=== PATIENT | male | born 2000 | race Two or more races ===

== ENCOUNTER 2025-09-14 11:19 | Emergency (ER) | payer SELFPAY ==
[2025-09-14] MEDS ORDERED: Bacitracin Zinc Ointment 30 gm TUBE ONE (12:00)
[2025-09-14] MEDS ORDERED: Lidocaine 1% (PF) 30 ML VIAL ONE (12:00)
[2025-09-14] MEDS ORDERED: Boostrix 0.5 ML (Tdap) VIAL (>/=7 yrs of age) ONE (12:00)
[2025-09-14] MEDS ORDERED: Cephalexin 500 MG CAP ONE (12:53)
== END 2025-09-14 14:39 | disposition home or self-care (01) ==
LOC: NAV ERS 11:19
DX: S52.501A Unspecified fracture of the lower end of right radius, initial encounter for closed fracture (principal); S81.012A Laceration without foreign body, left knee, initial encounter; S81.011A Laceration without foreign body, right knee, initial encounter; V18.0XXA Pedal cycle driver injured in noncollision transport accident in nontraffic accident, initial encounter; Z23 Encounter for immunization
CPT/HCPCS: 12002; 90471; 90715; J2003